=== PATIENT | female | born 1985 | race African-American/Black ===

== ENCOUNTER → 2017-07-02 | Outpatient (CLI) | payer OTHER ==
[~2017-07-02] MED LIST: PANTOPRAZOLE SO40 MG PO
[2017-07-02 11:31] LABS: BILIRUBIN,DIRECT 0.2 mg/dL (0.0-0.5)
== END ==
LOC: LAB 10:12
PROVIDERS: ATTEND Podiatrist Foot & Ankle Surgery
DX: B35.1 Tinea unguium (principal)
CPT/HCPCS: 36415; 80076